=== PATIENT | male | born 1955 | race Caucasian/White ===

== ENCOUNTER 2019-03-28 09:08 | Outpatient (CLI) | payer MEDICARE ==
--- NOTE | 2019-03-28 16:01 | MRI ---
MRA BRAIN WITHOUT CONTRAST: Date: 03/28/19 COMPARISON: 03/23/17. HISTORY: Intracranial aneurysm. TECHNIQUE: MRA of the brain was performed without contrast using 3D [id number] imaging. 3D rotation reformat s performed. FINDINGS: There is a stable 3-4 mm aneurysm emanating from the anterior communicating artery. The anterior cere bral arteries and middle cerebral arteries are patent without evidence of focal stenosis or additiona l aneurysm. The vertebral arteries form a normal appearing basilar artery. Posterior cerebral arteries and cerebe llar arteries are patent. There is no evidence of focal stenosis, occlusion, or aneurysmal dilatation of the posterior circulation. IMPRESSION: Stable small anterior communicating artery aneurysm. POS: [facility]
== END 2019-03-28 09:09 | disposition home or self-care (01) ==
LOC: TBSIIMAG 09:08
PROVIDERS: ATTEND Neurological Surgery
DX: I67.1 Cerebral aneurysm, nonruptured (principal)
CPT/HCPCS: 70544

== ENCOUNTER 2022-08-24 09:46 | Inpatient (IN) | payer MEDICARE ==
[2022-08-24] MEDS ORDERED: HYDROcodone/Acetaminophen 5/325 mg Tablet ONE (10:44)
[2022-08-24] MEDS ORDERED: Ketorolac Tromethamine 30 MG/ML VIAL ONE (10:44)
[2022-08-24] MEDS ORDERED: hydrALAZINE 20 MG/ML VIAL ONE (12:18)
[2022-08-24 15:00] LABS: SARS-CoV-2 NAA Rapid Test Not Detected (NotDetected)
[2022-08-24] MEDS ORDERED: Vancomycin 1 GM in Premix Bag 1 BAG IVPB SCH (15:30)
[2022-08-24] MEDS ORDERED: Clindamycin/D5W 900 MG in Premix Bag 1 BAG IVPB SCH (15:30)
[2022-08-24] MEDS ORDERED: Ondansetron PF 4 MG/2 ML Vial IVP PRN (16:42)
[2022-08-24] MEDS ORDERED: TETANUS, DIPHTHERIA TOX,ADULT (TDVAX) 0.5 ML VIAL IM ONE (16:42)
[2022-08-24] MEDS ORDERED: Morphine 2 MG/ML VIAL SLOW IVP PRN (16:42)
[2022-08-24] MEDS ORDERED: traMADol HCl 50 MG TAB PO PRN (16:43)
[2022-08-24] MEDS ORDERED: Rib Fracture Protocol IV SCH (16:45)
[2022-08-24] MEDS: Acetaminophen 325 MG TAB PO SCH (16:45)
[2022-08-24 18:42] VITALS: BMI 25.1
[2022-08-24 19:28] LABS: #Basophils 0.1 thou/uL (0.0-0.2); #Eosinphils 0.2 thou/uL (0.0-0.7); #Lymphocytes 2.3 thou/uL (1.20-3.40); #Monocytes 0.9 thou/uL (0.11-0.59); #Neutrophils 6.8 thou/uL (1.40-6.50); %Eosinophils 2.2 % (0.0-10.0); %Lymphocytes 22.6 % (21.0-51.0); %Monocytes 9.1 % (0.0-10.0); %Neutrophils 65.2 % (42.0-75.0); Hemoglobin 11.9 g/dL (14.0-18.0); Mean Corpuscular HGB CONC 30.7 g/dL (32.0-36.0); Mean Corpuscular Hemoglobin 25.8 pg (27.0-31.0); Mean Corpuscular Volume 83.9 fl (78.0-98.0); Platelet Count 211 10x3/uL (130-400); RBC Distribution Width 13.8 % (11.5-14.5); Red Blood Cell (RBC) Count 4.62 mill/uL (4.70-6.10); White Blood Cell (WBC) Count 10.4 10x3/uL (4.8-10.8)
[2022-08-24] MEDS: Sodium Chloride 0.9% 1,000 ML IV SCH (19:32)
[2022-08-24] MEDS: traMADol HCl 50 MG TAB PO SCH ×2 (19:32→23:27)
[2022-08-24] MEDS: Ketorolac Tromethamine 30 MG/ML VIAL IVP SCH ×2 (19:32→23:28)
[2022-08-24] MEDS: Acetaminophen 650 MG Suppository PR SCH ×2 (19:33→23:57)
[2022-08-24 19:43] LABS: Anion Gap 12 mmol/L (10-20); BUN (Urea Nitrogen) 23 mg/dL (8.4-25.7); Calc. Creatinine Clearance 51 mL/min (70-130); Calcium 8.7 mg/dL (7.8-10.44); Carbon Dioxide 25 mmol/L (23-31); Chloride 108 mmol/L (98-107); Estimated GFR 50; Glucose 110 mg/dL (80-115); Magnesium 2.2 mg/dL (1.6-2.6); Phosphorus 3.3 mg/dL (2.3-4.7); Potassium 4.2 mmol/L (3.5-5.1); Sodium 141 mmol/L (136-145)
[2022-08-24] MEDS ORDERED: Famotidine 20 MG TAB PO SCH (21:00)
[2022-08-24] MEDS: Senokot S 8.6-50 MG TAB PO SCH (21:16)
[2022-08-24] MEDS: Acetaminophen 500 MG TAB PO SCH (23:26)
[2022-08-25] MEDS: Acetaminophen 325 MG TAB PO SCH (00:57)
[2022-08-25] MEDS: Sodium Chloride 0.9% 1,000 ML IV SCH ×3 (02:40→17:00)
[2022-08-25] MEDS: Ketorolac Tromethamine 30 MG/ML VIAL IVP SCH (05:27)
[2022-08-25] MEDS: traMADol HCl 50 MG TAB PO SCH (05:28)
[2022-08-25] MEDS: Acetaminophen 500 MG TAB PO SCH (05:28)
[2022-08-25] MEDS: Acetaminophen 650 MG Suppository PR SCH (05:29)
[2022-08-25] MEDS ORDERED: traMADol HCl 50 MG TAB PO SCH (06:00)
[2022-08-25] MEDS: Morphine 4 MG/ML VIAL SLOW IVP PRN ×2 (06:38→20:18)
[2022-08-25] MEDS ORDERED: CEFAZOLIN 2 GM in Sodium Chloride 0.9% 100 ML IVPB SCH (07:00)
[2022-08-25 07:09] LABS: #Basophils 0.1 thou/uL (0.0-0.2); #Eosinphils 0.3 thou/uL (0.0-0.7); #Lymphocytes 2.4 thou/uL (1.20-3.40); #Monocytes 0.8 thou/uL (0.11-0.59); #Neutrophils 4.9 thou/uL (1.40-6.50); %Basophils 1.2 % (0.0-1.0); %Eosinophils 3.4 % (0.0-10.0); %Lymphocytes 28.1 % (21.0-51.0); %Monocytes 8.9 % (0.0-10.0); %Neutrophils 58.4 % (42.0-75.0); Hemoglobin 11.8 g/dL (14.0-18.0); Mean Corpuscular HGB CONC 31.2 g/dL (32.0-36.0); Mean Corpuscular Hemoglobin 26.4 pg (27.0-31.0); Mean Corpuscular Volume 84.8 fl (78.0-98.0); Mean Platelet Volume 9.8 fL (7.4-10.4); Platelet Count 204 10x3/uL (130-400); RBC Distribution Width 13.8 % (11.5-14.5); Red Blood Cell (RBC) Count 4.48 mill/uL (4.70-6.10); White Blood Cell (WBC) Count 8.4 10x3/uL (4.8-10.8)
[2022-08-25 07:28] LABS: Phosphorus 3.5 mg/dL (2.3-4.7)
[2022-08-25 07:38] LABS: Anion Gap 7 mmol/L (10-20); BUN (Urea Nitrogen) 26 mg/dL (8.4-25.7); Calc. Creatinine Clearance 57 mL/min (70-130); Calcium 8.6 mg/dL (7.8-10.44); Carbon Dioxide 25 mmol/L (23-31); Chloride 110 mmol/L (98-107); Estimated GFR 56; Glucose 88 mg/dL (80-115); Magnesium 2.2 mg/dL (1.6-2.6); Potassium 4.3 mmol/L (3.5-5.1); Sodium 138 mmol/L (136-145)
[2022-08-25] MEDS: Senokot S 8.6-50 MG TAB PO SCH ×2 (09:12→20:50)
[2022-08-25] MEDS: Polyethylene Glycol 3350 17 GM Packet PO SCH (09:12)
[2022-08-25] MEDS ORDERED: fentaNYL PF 100 MCG/2 ML SYRINGE ONE (10:43)
[2022-08-25] MEDS ORDERED: Propofol 500 MG/50 ML VIAL ONE (10:43)
[2022-08-25] MEDS ORDERED: Midazolam HCl 2 mg/2 ml Vial ONE (10:53)
[2022-08-25] MEDS ORDERED: Bupivacaine PF 0.5% 30 ML VIAL ONE (10:53)
[2022-08-25] MEDS ORDERED: FENTANYL 50 MCG/ML 1 ML VIAL ONE (10:53)
[2022-08-25] MEDS ORDERED: Zolpidem Tartrate 5 MG TAB PO PRN (10:57)
[2022-08-25] MEDS ORDERED: diphenhydrAMINE 25 MG CAP PO PRN (10:57)
[2022-08-25] MEDS ORDERED: Promethazine HCl 25 MG/ML VIAL IM PRN ×2 (10:57→13:22)
[2022-08-25] MEDS ORDERED: Acetaminophen 325 MG TAB PO PRN (10:57)
[2022-08-25] MEDS ORDERED: Ondansetron PF 4 MG/2 ML Vial IVP PRN (10:57)
[2022-08-25] MEDS ORDERED: HYDROcodone/Acetaminophen 10/325 mg Tablet PO PRN ×2 (10:57)
[2022-08-25] MEDS ORDERED: FENTANYL 50 MCG/ML 1 ML VIAL SLOW IVP PRN ×2 (11:09→11:10)
[2022-08-25] MEDS ORDERED: Cyclobenzaprine 10 MG TAB PO PRN (11:22)
[2022-08-25] MEDS ORDERED: CEFAZOLIN 2 GM VIAL ONE (11:26)
[2022-08-25] MEDS ORDERED: Sodium Chloride 0.9% 100 ML ONE ×2 (11:26→12:04)
[2022-08-25] MEDS ORDERED: Dexamethasone 20 MG/5 ML VIAL ONE (11:42)
[2022-08-25] MEDS ORDERED: PROPOFOL 200 MG/20 ML VIAL ONE (11:42)
[2022-08-25] MEDS ORDERED: Ondansetron PF 4 MG/2 ML Vial ONE (11:42)
[2022-08-25] MEDS ORDERED: Vancomycin 1 GM/200 ML (FROZEN) BAG ONE (12:03)
[2022-08-25] MEDS ORDERED: Tranexamic Acid 1,000 MG/10 ML VIAL ONE (12:04)
[2022-08-25] MEDS ORDERED: HYDROmorphone 2 MG/ML VIAL SLOW IVP PRN (13:22)
[2022-08-25] MEDS ORDERED: Ondansetron HCl/PF 4 MG/2 ML Vial IVP PRN (13:22)
[2022-08-25] MEDS ORDERED: Promethazine HCl 25 MG/ML VIAL IVPB PRN (13:22)
[2022-08-25] MEDS: Acetaminophen/Codeine 30-300mg Tablet PO SCH ×2 (14:15→17:12)
[2022-08-25] MEDS: hydrALAZINE 20 MG/ML VIAL SLOW IVP PRN (20:19)
[2022-08-25] MEDS: Aspirin 81 mg Enteric Coated Tablet PO SCH (20:50)
[2022-08-25] MEDS: Ferrous Gluconate 324 MG TAB PO SCH (20:50)
[2022-08-25] MEDS ORDERED: Lisinopril 5 MG TAB PO SCH (21:00)
[2022-08-26] MEDS: Acetaminophen/Codeine 30-300mg Tablet PO SCH ×3 (01:19→11:11)
[2022-08-26] MEDS: Sodium Chloride 0.9% 1,000 ML IV SCH ×2 (03:32→11:12)
[2022-08-26 05:04] LABS: Hemoglobin 12.2 g/dL (14.0-18.0); Mean Corpuscular HGB CONC 30.9 g/dL (32.0-36.0); Mean Corpuscular Volume 84.1 fl (78.0-98.0); Mean Platelet Volume 10.1 fL (7.4-10.4); Platelet Count 231 10x3/uL (130-400); RBC Distribution Width 13.6 % (11.5-14.5); Red Blood Cell (RBC) Count 4.68 mill/uL (4.70-6.10); White Blood Cell (WBC) Count 17.6 10x3/uL (4.8-10.8)
[2022-08-26] MEDS: hydrALAZINE 20 MG/ML VIAL SLOW IVP PRN (06:08)
[2022-08-26] MEDS: Polyethylene Glycol 3350 17 GM Packet PO SCH (08:22)
[2022-08-26] MEDS: Aspirin 81 mg Enteric Coated Tablet PO SCH (08:23)
[2022-08-26] MEDS: Ferrous Gluconate 324 MG TAB PO SCH (08:23)
[2022-08-26] MEDS: Senokot S 8.6-50 MG TAB PO SCH (08:23)
[2022-08-26 08:25] VITALS: TEMP 97.6
[2022-08-26] MEDS: Morphine 4 MG/ML VIAL SLOW IVP PRN (08:29)
[2022-08-26 08:31] LABS: #Eosinphils 0.1 thou/uL (0.0-0.7); #Lymphocytes 1.7 thou/uL (1.20-3.40); #Monocytes 1.6 thou/uL (0.11-0.59); #Neutrophils 16.3 thou/uL (1.40-6.50); %Basophils 0.1 % (0.0-1.0); %Eosinophils 0.3 % (0.0-10.0); %Lymphocytes 8.4 % (21.0-51.0); %Monocytes 8.1 % (0.0-10.0); Hemoglobin 12.8 g/dL (14.0-18.0); Mean Corpuscular HGB CONC 31.2 g/dL (32.0-36.0); Mean Corpuscular Hemoglobin 26.2 pg (27.0-31.0); Mean Corpuscular Volume 83.8 fl (78.0-98.0); Mean Platelet Volume 10.1 fL (7.4-10.4); Platelet Count 243 10x3/uL (130-400); RBC Distribution Width 13.7 % (11.5-14.5); Red Blood Cell (RBC) Count 4.88 mill/uL (4.70-6.10); White Blood Cell (WBC) Count 19.6 10x3/uL (4.8-10.8)
[2022-08-26] MEDS ORDERED: Multivitamin W/ Minerals 1 TAB PO SCH (09:00)
[2022-08-26] MEDS ORDERED: Lisinopril 10 MG TAB PO SCH (09:00)
[2022-08-26] MEDS ORDERED: traMADol HCl 50 MG TAB PO PRN (11:51)
[2022-08-26 11:59] VITALS: BP 96/58
[2022-08-26] MEDS ORDERED: traMADol HCl 50 MG TAB PO SCH (12:00)
[2022-08-26] MEDS ORDERED: Lisinopril 5 MG TAB PO SCH ×2 (12:00→21:00)
[2022-08-26 15:55] LABS: Bilirubin Negative (Negative); Blood, Urine Trace (Negative); CAUTI Indications for Culture Pelvic or flank pain; Clarity Clear (Clear); Glucose, Urine (Dipstick) 30 mg/dL (Negative); Ketone, Urine Trace mg/dL (Negative); Leukocyte 500 Leu/uL (Negative); Nitrite Negative (Negative); Protein, Urine (Dipstick) 20 mg/dL (Neg-Trace); Squamous Epithelial 0-3 HPF (0-3); Urobilinogen Normal mg/dL (Less than 2); WBC/HPF Greater than 50 HPF (0-3); pH, Urine 5.5 (5.0-9.0)
[2022-08-26 15:56] LABS: Bacteria/HPF 1+ HPF (None Seen)
[2022-08-26 15:58] LABS: Urine Culture Reflex Yes Yes
[2022-08-27] MEDS ORDERED: Heparin 5,000 UNITS/ML VIAL SC SCH (09:00)
== END 2022-08-26 16:20 | disposition home or self-care (01) | DRG 522 ==
LOC: ERS 09:46 → ERHOLD 11:47 → SURG B 16:39
PROVIDERS: ADMIT Surgery; ATTEND Surgery
PROC: 0SR902A Replacement of Right Hip Joint with Metal on Polyethylene Synthetic Substitute, Uncemented, Open Approach (ICD-10-PCS; principal; 2022-08-25)
DX: S72.031A Displaced midcervical fracture of right femur, initial encounter for closed fracture (principal); N17.9 Acute kidney failure, unspecified; Z20.822 Contact with and (suspected) exposure to COVID-19; N18.9 Chronic kidney disease, unspecified; I12.9 Hypertensive chronic kidney disease with stage 1 through stage 4 chronic kidney disease, or unspecified chronic kidney disease; D72.829 Elevated white blood cell count, unspecified; W11.XXXA Fall on and from ladder, initial encounter; Z23 Encounter for immunization; Z98.890 Other specified postprocedural states; Z88.0 Allergy status to penicillin
CPT/HCPCS: 36415; 71045; 80048; 81001; 82533; 83735; 84100; 85025; 85027; 87086; 90714; 94640; 96372; 96374; C1776; J0360; J1885; J2250; J2270; J2704; J3010; J3370-JW; J3490; J7050; J7620; P9045; S0020; U0002

== ENCOUNTER 2023-07-23 14:57 | Inpatient (IN) | payer MEDICARE ==
[~2023-07-23 14:57] MED LIST: Iopamidol-370 76% 500 ML MDV (1 ML CHARGE) ONE
[2023-07-23 15:47] LABS: #Basophils 0.1 thou/uL (0.0-0.2); #Eosinphils 0.1 thou/uL (0.0-0.7); #Monocytes 0.9 thou/uL (0.11-0.59); #Neutrophils 4.6 thou/uL (1.40-6.50); %Basophils 1.1 % (0.0-1.0); %Eosinophils 1.5 % (0.0-10.0); %Lymphocytes 26.4 % (21.0-51.0); %Monocytes 11.5 % (0.0-10.0); %Neutrophils 59.2 % (42.0-75.0); Hematocrit 45.1 % (42.0-52.0); Hemoglobin 14.1 g/dL (14.0-18.0); Mean Corpuscular HGB CONC 31.3 g/dL (32.0-36.0); Mean Corpuscular Hemoglobin 25.5 pg (27.0-31.0); Mean Corpuscular Volume 81.6 fl (78.0-98.0); Mean Platelet Volume 10.9 fL (7.4-10.4); Platelet Count 320 10x3/uL (130-400); RBC Distribution Width 14.9 % (11.5-14.5); Red Blood Cell (RBC) Count 5.53 mill/uL (4.70-6.10); White Blood Cell (WBC) Count 7.8 10x3/uL (4.8-10.8)
[2023-07-23 16:10] LABS: ALT (SGPT) 92 U/L (8-55); AST (SGOT) 55 U/L (5-34); Albumin 5.2 g/dL (3.4-4.8); Alkaline Phosphatase 253 U/L (40-110); Anion Gap 14 mmol/L (10-20); BUN (Urea Nitrogen) 18 mg/dL (8.4-25.7); Bilirubin, Total 0.6 mg/dL (0.2-1.2); Calc. Creatinine Clearance 0 mL/min (70-130); Calcium 10.5 mg/dL (7.8-10.44); Carbon Dioxide 28 mmol/L (23-31); Chloride 101 mmol/L (98-107); Estimated GFR 58; Globulin 3.7 g/dL (2.4-3.5); Glucose 98 mg/dL (80-115); Lipase 41 U/L (8-78); Potassium 3.9 mmol/L (3.5-5.1); Protein, Total 8.9 g/dL (5.8-8.1); Sodium 139 mmol/L (136-145)
[2023-07-23 16:20] LABS: Troponin I Less than 0.010 ng/mL (< 0.028)
[2023-07-23] MEDS ORDERED: Morphine 4 MG/ML VIAL ONE ×2 (17:39→19:38)
[2023-07-23] MEDS ORDERED: Senokot S 8.6-50 MG TAB PO PRN (19:50)
[2023-07-23] MEDS ORDERED: Ondansetron ODT 4 MG TAB PO PRN (19:50)
[2023-07-23] MEDS ORDERED: Nitroglycerin 50 MG/250 ML BOT 250 ML IVPB SCH (20:00)
[2023-07-23] MEDS ORDERED: Nitroglycerin 50 MG/250 ML BOT 250 ML ONE (20:25)
[2023-07-23] MEDS ORDERED: Aspirin Chewable 81 MG TAB ONE (20:25)
[2023-07-23 20:45] LABS: Troponin I Less than 0.010 ng/mL (< 0.028)
[2023-07-23 21:55] VITALS: BMI 19.5
[2023-07-23] MEDS: Famotidine 20 MG TAB PO SCH (22:08)
[2023-07-23 23:48] LABS: Troponin I Less than 0.010 ng/mL (< 0.028)
[2023-07-24] MEDS: Morphine 2 MG/ML VIAL SLOW IVP PRN ×4 (00:23→16:40)
[2023-07-24] MEDS ORDERED: hydrALAZINE 20 MG/ML VIAL SLOW IVP PRN (01:24)
[2023-07-24] MEDS ORDERED: Labetalol HCl 100 MG/20 ML VIAL SLOW IVP PRN (01:24)
[2023-07-24] MEDS ORDERED: Nitroglycerin 0.4 MG TAB (25 Tab Bottle) SL PRN (01:25)
[2023-07-24] MEDS ORDERED: niCARdipine 25 MG in Sodium Chloride 0.9% 250 ML 250 ML IVPB SCH (01:30)
[2023-07-24] MEDS ORDERED: Sodium Chloride 0.9% 100 ML ONE (01:39)
[2023-07-24] MEDS: Acetaminophen 325 MG TAB PO PRN ×2 (02:10→06:30)
[2023-07-24] MEDS ORDERED: Methocarbamol 500 MG TAB PO PRN (02:49)
[2023-07-24 06:19] LABS: Anion Gap 14 mmol/L (10-20); BUN (Urea Nitrogen) 15 mg/dL (8.4-25.7); Calc. Creatinine Clearance 62 mL/min (70-130); Calcium 9.4 mg/dL (7.8-10.44); Carbon Dioxide 23 mmol/L (23-31); Chloride 104 mmol/L (98-107); Estimated GFR 81; Glucose 84 mg/dL (80-115); Sodium 137 mmol/L (136-145)
[2023-07-24 06:52] LABS: #Basophils 0.1 thou/uL (0.0-0.2); #Eosinphils 0.2 thou/uL (0.0-0.7); #Monocytes 1.6 thou/uL (0.11-0.59); #Neutrophils 4.6 thou/uL (1.40-6.50); %Basophils 1.2 % (0.0-1.0); %Eosinophils 2.4 % (0.0-10.0); %Lymphocytes 26.4 % (21.0-51.0); %Neutrophils 51.7 % (42.0-75.0); Hematocrit 44.4 % (42.0-52.0); Hemoglobin 13.3 g/dL (14.0-18.0); Mean Corpuscular Hemoglobin 25.5 pg (27.0-31.0); Mean Platelet Volume 11.6 fL (7.4-10.4); Platelet Count 249 10x3/uL (130-400); RBC Distribution Width 15.1 % (11.5-14.5); Red Blood Cell (RBC) Count 5.22 mill/uL (4.70-6.10); White Blood Cell (WBC) Count 8.9 10x3/uL (4.8-10.8)
[2023-07-24 07:02] LABS: Mean Corpuscular Volume 85.1 fl (78.0-98.0)
[2023-07-24] MEDS: Famotidine 20 MG TAB PO SCH ×2 (08:39→20:48)
[2023-07-24] MEDS: Lisinopril 5 MG TAB PO SCH ×2 (08:39→20:48)
[2023-07-24] MEDS ORDERED: FLU VACC QS2023(65UP)/MF59C/PF 60 MCG/0.5 ML SYRINGE IM ONE (09:00)
[2023-07-25] MEDS: Morphine 2 MG/ML VIAL SLOW IVP PRN (00:44)
[2023-07-25] MEDS: Lisinopril 5 MG TAB PO SCH (08:40)
[2023-07-25] MEDS: Famotidine 20 MG TAB PO SCH (08:40)
[2023-07-25 12:47] VITALS: TEMP 97.7
[2023-07-25] MEDS ORDERED: Carvedilol 6.25 MG TAB PO SCH (17:00)
== END 2023-07-25 17:00 | disposition home or self-care (01) | DRG 305 ==
LOC: ERS 14:57 → CCU 19:50
PROVIDERS: ADMIT Student in an Organized Health Care Education/Training Program; ATTEND Internal Medicine
DX: I16.9 Hypertensive crisis, unspecified (principal); I16.1 Hypertensive emergency; R10.13 Epigastric pain; R74.01 Elevation of levels of liver transaminase levels; F10.90 Alcohol use, unspecified, uncomplicated; F17.210 Nicotine dependence, cigarettes, uncomplicated; F17.220 Nicotine dependence, chewing tobacco, uncomplicated; R79.89 Other specified abnormal findings of blood chemistry; I12.9 Hypertensive chronic kidney disease with stage 1 through stage 4 chronic kidney disease, or unspecified chronic kidney disease; I67.1 Cerebral aneurysm, nonruptured; N18.2 Chronic kidney disease, stage 2 (mild); Z98.890 Other specified postprocedural states; Z88.0 Allergy status to penicillin; Z79.82 Long term (current) use of aspirin; Z79.899 Other long term (current) drug therapy
CPT/HCPCS: 36415; 70450; 71045; 71275; 76705; 76770; 80048; 80053; 83690; 83880; 84484; 85025; 85379; 93005; 93306; 94760; 96365; 96375; 96376; J0360; J1650; J2270; J2272; J7050; Q9967